=== PATIENT | male | born 1960 | race Caucasian/White ===

== ENCOUNTER 2024-06-15 12:44 | Outpatient (AMB) | payer OTHER, SELFPAY ==
--- NOTE | 2024-06-15 12:52 | MHC.PC.OV ---
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 Intake Note: Pt is here today as a New Patient to est care/ Pt is here c/o lump above belly button Allergies No Known Allergies Allergy (Verified 06/15/24 13:22) Medication List - Last Reconciled 06/15/24 by Shalonda Villegas MD aspirin (Adult Low Dose Aspirin) 81 mg PO DAILY atorvastatin mg PO DAILY diltiazem HCl CD mg PO DAILY Tobacco use date assessed: 06/15/24 Dental Screening Dental Screen Date: 06/15/24 Did you have a dental visit in the last 12 months?: No Did you have a dental problem in the last 6 months where you did not have access to dental care?: No Was dental information given to patient?: Patient has dentist 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 He is worried that it might be a hernia that might cause problems later if he does not get it checked. [facility] Medical History (Updated 06/15/24 @ 13:38 by Shalonda Villegas MD) Dyslipidemia Persistent atrial fibrillation Mass in the abdomen Surgical History (Updated 06/18/24 @ 01:11 by Shalonda Villegas MD) No pertinent past surgical history Social History Housing: House Patient Tobacco Use Status: Former Tobacco user e-Cigarette/Vaping Use: Never Used service: No Current occupational status: employed Cognitive needs: No Hearing needs: No Vision needs: Yes Questionnaire PHQ-9 Over the last 2 weeks, how often have you been bothered by any of the following problems? 1. Little interest or pleasure in doing things: not at all 2. Feeling down, depressed, or hopeless: not at all 3. Trouble falling or staying asleep, or sleeping too much: not at all 4. Feeling tired or having little energy: not at all 5. Poor appetite or overeating: not at all 6. Feeling bad about yourself - or that you are a failure or have let yourself or your family down: not at all 7. Trouble concentrating on things, such as reading the newspaper or watching television: not at all 8. Moving or speaking so slowly that other people could have noticed. Or the opposite - being so fidgety or restless that you have been moving around a lot more than usual: not at all 9. Thoughts that you would be better off or of hurting yourself in some way: not at all Total score: 0 Depression Screening Interpretation: Negative Depression Screening Done: Yes 00212 - PHQ-9 Billing: Yes Source: Developed by Drs. Evangelist Bhardwaj, Julieta Moody, Babak Marie and colleagues, with an educational janett from [employer]. Thrive Questionnaire Date Thrive assessed: 06/15/24 I am a: Patient What is your living situation today?: I have a steady place to live Within the past 12 months, did the food you bought not last and you didn't have the money to get more?: Never true Within the past 12 months, did you worry whether your food would run out before you got money to buy more?: Never true Do you have trouble paying for medicines?: No Do you have trouble getting transportation to medical appointments?: No Do you have trouble paying your heating and electricity bill?: No Do you have trouble taking care of your child, family member or friend?: No Do you have trouble with day-to-day activities such as bathing, preparing meals, shopping, managing finances, etc.?: No Are you currently unemployed and looking for a job?: No Are you interested in more education?: No Please select the resources that you would like help with: None Currently or been in a relationship where the following occur: No concerns reported THRIVE Score: 0 AUDIT C Alcohol Use Questionnaire (AUDIT-C) 1. How often do you have a drink containing alcohol?: 4 or more times a week 2. How many drinks containing alcohol do you have on a typical day when you are drinking?: 3 or 4 3. How often do you have six or more drinks on one occasion?: Less than monthly Total Score: 6 DONNA-7 AMB Questionnaire DONNA-7 Date DONNA - 7 assessed: 06/15/24 Feeling nervous, anxious, or on edge: 0 = Not at all Not being able to stop or control worryin = Not at all Worrying too much about different things: 0 = Not at all Trouble relaxin = Not at all Being so restless that it is hard to sit still: 0 = Not at all Becoming easily annoyed or irritable: 0 = Not at all Feeling afraid as if something awful might happen: 0 = Not at all Total DONNA-7 score (0-4 normal; 5-9 mild; 10-14 moderate; 15-21 severe): 0 Source: Developed by Drs. Evangelist Bhardwaj, Julieta Moody, Babak Marie and colleagues, with an educational janett from [employer]. Review of Systems Const Denies fatigue, Denies fever(s), Denies headache(s) and Denies weakness Eyes Denies change in vision ENT Denies dizziness, Denies headache(s) and Denies nasal congestion Card Denies chest pain, Denies lightheadedness and Denies dyspnea Resp Denies cough and Denies dyspnea GI Denies abdominal pain, Denies change in bowel habits and Denies heartburn Denies hematuria, Denies difficulty urinating, Denies dysuria, Denies urinary frequency and Denies urinary urgency Musc Reports as per HPI Neuro Denies dizziness, Denies headache(s) and Denies weakness Psych Reports no additional complaints Endo Denies fatigue, Denies polydipsia and Denies polyuria Jose/Lymph Denies easy bruising Aller/Immun Denies seasonal rhinorrhea Physical exam (Primary Care) Vital Signs: Last Vital Signs Temp 99.0 F 06/15/24 12:59 Pulse 97 06/15/24 12:59 Resp 16 06/15/24 12:59 BP 118/60 06/15/24 12:59 Pulse Ox 96 06/15/24 12:59 Oxygen Delivery Method Room Air 06/15/24 12:59 BMI result Body Mass Index 25.9 Tobacco/Smoking Status: Tobacco use Status Tobacco use date assessed 06/15/24 06/15/24 13:03 Patient Tobacco Use Status Former Tobacco user 06/15/24 13:03 e-Cigarette/Vaping Use Never Used 06/15/24 13:03 PHQ-9: PHQ-9 Score PHQ-9: Total score 0 06/15/24 22:39 Depression Screening Interpretation: Negative Thrive Assessment: Date of Thrive Assessment Date Thrive assessed 06/15/24 06/15/24 13:03 Currently or been in a relationship where the following occur: No concerns reported Const General: no acute distress and alert Nutritional Appearance: average body habitus Orientation/consciousness: patient oriented x3 HENMT Head: Yes normocephalic Ears: hearing grossly normal bilaterally and external ears normal Face and sinus: Yes face symmetric Mouth: Normal oral and palatal mucosa present, oropharynx normal and moist mucous membranes Neck Neck: Yes full ROM, Yes no lymphadenopathy and Yes supple Resp Auscultation: clear to auscultation bilaterally Cardio Palpation: normal PMI Rate: regular rate Rhythm: regular rhythm Heart sounds: S1 normal heart sound present and S2 normal heart sound present GI Other: Bulging mass nontender to palpation on supra umbilical area Skin General skin exam: no rashes or lesions noted Neuro General: patient oriented x3, gait normal, moves all extremities and no focal motor deficits Extrem General: Yes full ROM, Yes no joint enlargement, Yes no clubbing, cyanosis or edema and Yes normal gait Coding Level of Care Code New Pt Level 4 (56216) Complex EM visit Add On G2211 Diagnoses Periumbilical mass R19.05 Abdominal location: periumbilical Persistent atrial fibrillation I48.19 Dyslipidemia E78.5 Additional Codes PHQ-9 - 82903 - PHQ-9 Billing: Yes ([id number]) Assessment & Plan Assessment & Plan (1) Mass in the abdomen: Code(s): R19.00 - Intra-abdominal and pelvic swelling, mass and lump, unspecified site Category: Medical Qualifiers: Abdominal location: periumbilical Qualified Code(s): R19.05 - Periumbilic swelling, mass or lump Plan: Ultrasound of abdomen limited ordered, referred to general surgery for further evaluation management (2) Persistent atrial fibrillation: Comment: Followed by Dr. Camargo in [facility] cardiology currently only on aspirin 81 mg daily Code(s): I48.19 - Other persistent atrial fibrillation Category: Medical Plan: Currently on aspirin 81 mg daily and diltiazem , followed by [facility] cardiology (3) Dyslipidemia: Code(s): E78.5 - Hyperlipidemia, unspecified Category: Medical Plan: Fasting lipid panel ordered, reinforced importance of following a low-cholesterol diet and getting regular exercise. Orders: Orders Basic Metabolic Panel Fasting 06/15/24 E78.5 - Hyperlipidemia, unspecified, I48.19 - Other persistent atrial fibrillation, Z12.5 - Encounter for screening for malignant neoplasm of prostate Alanine Aminotransferase 06/15/24 E78.5 - Hyperlipidemia, unspecified, I48.19 - Other persistent atrial fibrillation, Z12.5 - Encounter for screening for malignant neoplasm of prostate PSA,Total (Free>4and<10) 06/15/24 E78.5 - Hyperlipidemia, unspecified, I48.19 - Other persistent atrial fibrillation, Z12.5 - Encounter for screening for malignant neoplasm of prostate US abdomen limited 06/15/24 R19.00 - Intra-abdominal and pelvic swelling, mass and lump, unspecified site Lipid Panel 06/15/24 E78.5 - Hyperlipidemia, unspecified, I48.19 - Other persistent atrial fibrillation, Z12.5 - Encounter for screening for malignant neoplasm of prostate Complete Blood Count Auto Diff 06/15/24 E78.5 - Hyperlipidemia, unspecified, I48.19 - Other persistent atrial fibrillation, Z12.5 - Encounter for screening for malignant neoplasm of prostate Aspartate Amino Transferase 06/15/24 E78.5 - Hyperlipidemia, unspecified, I48.19 - Other persistent atrial fibrillation, Z12.5 - Encounter for screening for malignant neoplasm of prostate Vitamin D 25-OH Total 06/15/24 E78.5 - Hyperlipidemia, unspecified, I48.19 - Other persistent atrial fibrillation, Z12.5 - Encounter for screening for malignant neoplasm of prostate Referrals General Surgery Referral R19.00 - Intra-abdominal and pelvic swelling, mass and lump, unspecified site
[2024-06-15 12:59] VITALS: BP 118/60; PULSE 97; RESP 16; TEMP 37.2; O2SAT 96; BMI 25.9
--- OUTSIDE RECORDS SUMMARY | 2024-06-15 15:21 | XMS_ITS | Clinical Summary ---
Author Organization [facility] Address [address] [place] [address] Care Team Providers Care Feather Shaper Name Role Phone Unavailable Primary Care Provider Unavailabl e Social History Tobacco Use Types Packs/Day Years Used Date Smoking Tobacco: Never Assessed Sex and Gender Information Value Date Recorded Sex Assigned at Male 10/20/2021 7:50 AM EDT Gender Identity Male 10/20/2021 7:50 AM EDT Sexual Orientation Not on file Job Start Date Occupation Industry Not on file Not on file Not on file Plan of Treatment Health Maintenance Due Date Last Done Comments Hepatitis C Screening 1960 COVID-19 Vaccine (#1) 02/25/1960 Depression Screening 1971 Preventative Health Evaluation 08/24/1977 DTap / Tdap / Td (1 - Tdap) 08/24/1978 Colon Cancer Screening (Colonoscopy) 08/24/2004 Shingrix-Zoster Vaccine (1 of 2) 08/24/2009 Influenza Vaccine (#1) 2023 Pneumococcal Vaccine (1 of 1 - PCV) 08/24/2024 RSV Adult > 60+ Yrs or Pregn ant (1 - 1-dose 75+ series) 08/24/2034 Hepatitis B Vaccines Aged Out No long er eligible based on patient's age to complete this topic Pneumococcal Vaccine Aged Out No long er eligible based on patient's age to complete this topic RSV Ped < 20 months Aged Out No longe r eligible based on patient's age to complete this topic Pop [place] Personal/Family Self 1960 [address] [place] [address]
== END 2024-06-15 13:43 | disposition home or self-care (01) ==
PROVIDERS: PCP Family Medicine; Visit Provider Internal Medicine
DX: R19.05 Periumbilic swelling, mass or lump (principal); I48.19 Other persistent atrial fibrillation; E78.5 Hyperlipidemia, unspecified

== ENCOUNTER → 2024-06-15 12:44 | Outpatient (BNVA) | payer OTHER, SELFPAY | PROVIDERS: PCP Family Medicine; Visit Provider Internal Medicine | DX: R19.05 Periumbilic swelling, mass or lump (principal); I48.19 Other persistent atrial fibrillation; E78.5 Hyperlipidemia, unspecified; Z79.82 Long term (current) use of aspirin; Z79.899 Other long term (current) drug therapy | CPT/HCPCS: 96127 ==

== ENCOUNTER 2024-06-28 10:12 | Outpatient (REF) | payer OTHER, SELFPAY ==
--- NOTE | ~2024-06-28 | US_ITS ---
CLINICAL HISTORY: R19.00 - Intra-abdominal and pelvic swelling, mass and lump, unspecified... US abdomen limited Comparison: None Findings: Focused sonographic imaging of the periumbilical area demonstrates a fat containing hernia with aperture measuring 1.4 cm. IMPRESSION: Findings are consistent with fat containing periumbilical hernia at the region of palpable abnormality with aperture measuring 14 mm. This document has been electronically signed by: Galina Chamorro MD on 06/29/2024 09:38:41
--- OUTSIDE RECORDS SUMMARY | 2024-06-28 11:53 | XMS_ITS | Clinical Summary ---
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
== END 2024-06-28 10:13 | disposition home or self-care (01) ==
LOC: HO.HMGCX 10:12
PROVIDERS: PCP Internal Medicine; Visit Provider Internal Medicine
DX: R19.00 Intra-abdominal and pelvic swelling, mass and lump, unspecified site (principal)
CPT/HCPCS: 76705

== ENCOUNTER → 2024-06-28 10:39 | Outpatient (BNV) | payer OTHER, SELFPAY | PROVIDERS: PCP Internal Medicine; Visit Provider Radiology Diagnostic Radiology | DX: R19.00 Intra-abdominal and pelvic swelling, mass and lump, unspecified site (principal) | CPT/HCPCS: 76705 ==

== ENCOUNTER 2024-07-06 08:38 | Outpatient (AMB) | payer OTHER, SELFPAY ==
--- NOTE | 2024-07-06 08:46 | A.OFFVIS_ITS ---
Vital Signs 3 07/06/24 08:54 Height 5 ft 11 in Weight 186 lb BMI 25.9 BP 120/68 Blood Pressure Location Lt brachial Position Sitting Intake Visit Reasons: Intra-abdominal and pelvic swelling, mass and lump Intake Note: Pt states, I guess I have a hernia. 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 He first noticed symptoms a few months ago after experiencing a twinge sensation at work during heavy lifting. This incident coincided with him feeling something pop but was not immediately painful. An ultrasound confirmed the presence of a small hernia with fatty tissue protrusion, measuring approximately 1.5 centimeters. The patient has had no prior abdominal surgeries and reports occasional mild pain, unsure if this is age-related. There are no associated gastrointestinal symptoms such as nausea, vomiting, or bowel issues. Furthermore, a diastasis recti was noted, characterized by rectus muscle separation, but it presents no immediate health concerns. [facility] Medical History (Updated 07/06/24 @ 09:56 by Grabiel Duncan MD) Dyslipidemia Persistent atrial fibrillation Mass in the abdomen Surgical History (Updated 07/06/24 @ 09:01 by Leoncio Sarmiento RN) History of open treatment of fracture of patella No pertinent past surgical history Social History Housing: House Patient Tobacco Use Status: Former Tobacco user e-Cigarette/Vaping Use: Never Used service: No Current occupational status: employed Cognitive needs: No Hearing needs: No Vision needs: Yes Review of Systems Const Details: - Gastrointestinal: Denies nausea, vomiting, bowel issues. - Musculoskeletal: Reports mild, occasional pain not attributed to specific cause. All systems reviewed & are unremarkable except as noted in HPI and below Physical Exam Vital Signs: Last Vital Signs BP 120/68 07/06/24 08:54 BMI result Body Mass Index 25.9 Const General: cooperative and no acute distress Nutritional Appearance: well nourished Orientation/consciousness: patient oriented x3 Limitations: no limitations HEENT Head: Yes normocephalic and Yes atraumatic Ears: hearing grossly normal bilaterally Resp Effort & Inspection: normal respiratory effort, no audible wheezes, no cough and no respiratory distress Cardio Jugular venous distension: no JVD GI Other: Abdominal- Palpation reveals hernia protrusion retracts upon laying down. Exam confirms diastasis recti with no discomfort on pressure application. Inspection: Yes normal to inspection Abdomen image: 2 1. 2 cm defect, reducible in the supine position. Skin Other: Warm, dry, no rash Neuro General: patient oriented x3 Extrem General: Yes no clubbing, cyanosis or edema Assessment & Plan Assessment & Plan (1) Ventral hernia: Code(s): K43.9 - Ventral hernia without obstruction or gangrene Category: Medical Qualifiers: Obstruction and gangrene presence: without obstruction or gangrene Q ualified Code(s): K43.9 - Ventral hernia without obstruction or gangrene Plan The plan for this patient's reducible hernia includes surgical repair post- mcfp for optimal recovery. The procedure entails defect closure and reinforcement with mesh to prevent long-term complications. Post-surgery activity limitations include no heavy lifting for a month. Same-day discharge and follow-up will be arranged to ensure satisfactory recovery. Discussion involved delineating the benefits, such as reduced recurrence risk, and potential complications, like infection, to the patient, who agreed to proceed with the planned intervention after mcfp. I reviewed the procedure, risks, and alternatives to repair of the ventral hernia with mesh and he consents to the surgery. This will be scheduled as a same-day surgery. Patient was informed and verbally consented to the use of an ambient scribe for clinic note documentation du Coding Level of Care Code New Pt Level 4 (52225) Diagnoses Ventral hernia without obstruction or gangrene K43.9 Obstruction and gangrene presence: without obstruction or gangrene
[2024-07-06 08:54] VITALS: BP 120/68; BMI 25.9
== END 2024-07-06 09:12 | disposition home or self-care (01) ==
LOC: HO.HGS 08:39
PROVIDERS: PCP Internal Medicine; Visit Provider Surgery
DX: K43.9 Ventral hernia without obstruction or gangrene (principal)
CPT/HCPCS: 99204

== ENCOUNTER 2024-07-26 07:43 | Outpatient (REF) | payer OTHER, SELFPAY ==
[2024-07-26 10:09] LABS: MANUAL DIFF FLAG NO
[2024-07-26 10:21] LABS: Basophils Percent Auto 0.4 % (0-2); Eosinophils Absolute Auto 0.1 X10*3/uL (0.0-0.4); Eosinophils Percent Auto 1.9 % (0-4); Hematocrit 43.6 % (42.0-52.0); Imm Gran Abs Auto 0.01 X10*3/uL (0.00-0.03); Imm Gran Pct Auto 0.2 % (0.0-0.4); Lymphocytes Absolute Auto 1.2 X10*3/uL (1.2-4.9); Lymphocytes Percent Auto 25.5 % (20-40); Mean Corpuscular HGB Conc 34.4 g/dl (31.0-36.0); Mean Corpuscular Hemoglobin 31.3 pg (27.0-33.0); Monocytes Absolute Auto 0.6 X10*3/uL (0.1-1.2); Monocytes Percent Auto 13.1 % (2-11); Neutrophils Absolute Auto 2.8 x10*3/uL (2.0-8.3); Neutrophils Percent Auto 58.9 % (45-73); Platelet Count 297 X10*3/uL (160-400); Red Blood Count 4.79 X10*6/uL (4.60-5.80); Red Cell Distribution Width 11.9 % (11.0-16.0); White Blood Count 4.8 X10*3/uL (4.8-10.8)
[2024-07-26 11:05] LABS: PSA,Total (Free>4and<10) 1.35 ng/mL (0.00-4.00)
[2024-07-26 11:16] LABS: Alanine Aminotransferase 23 U/L (0-40); Anion Gap 9 (12-20); Aspartate Amino Transferase 31 U/L (5-37); Blood Urea Nitrogen 13 mg/dL (9-16); Calcium 9.1 mg/dL (8.4-10.2); Carbon Dioxide 27 mmol/L (22-29); Chloride 109 mmol/L (96-108); Cholesterol 139 mg/dL (<200); Estimated Glomerular Filt Rate > 60; Glucose Fasting 95 mg/dL (60-99); HDL Cholesterol 59 mg/dL (>40); LDL Cholesterol Calculated 68 mg/dL (<100); Potassium 4.2 mmol/L (3.3-5.1); Sodium 141 mmol/L (135-145); Triglycerides 62 mg/dL (<150)
== END 2024-07-26 07:44 | disposition home or self-care (01) ==
LOC: HO.HMGCLDS 07:43
PROVIDERS: PCP Internal Medicine; Visit Provider Internal Medicine
DX: I48.19 Other persistent atrial fibrillation (principal); E78.5 Hyperlipidemia, unspecified; Z12.5 Encounter for screening for malignant neoplasm of prostate
CPT/HCPCS: 36415; 80048; 80061; 82306; 84153; 84450; 84460; 85025

== ENCOUNTER 2024-11-16 09:12 | Outpatient (AMB) | payer OTHER, SELFPAY ==
--- NOTE | 2024-11-16 09:15 | MHC.PC.OV ---
Vital Signs 11/16/24 09:18 Height 5 ft 11 in Weight 193 lb BMI 26.9 BP 118/64 Blood Pressure Location Rt brachial Position Sitting Respiration 14 Pulse 92 Pulse Source Pulse Oximeter Temp 98.4 F Temp Source Oral Pulse Oximetry (%) 98 Oxygen Delivery Method Room Air Intake Visit Reasons: Annual PE Intake Note: Pt is here today for his PE: last colonoscopy 10yrs ago at [facility] [place] Allergies No Known Allergies Allergy (Verified 11/16/24 10:11) Medication List - Last Reconciled 11/16/24 by Shalonda Villegas MD aspirin (Adult Low Dose Aspirin) 81 mg PO DAILY atorvastatin mg PO DAILY diltiazem HCl CD mg PO DAILY Tobacco use date assessed: 11/16/24 Fall risk assessment: 1 Fall in past year Last assessed Fall Risk: 11/16/24 Dental Screening Dental Screen Date: 11/16/24 Did you have a dental visit in the last 12 months?: Yes Did you have a dental problem in the last 6 months where you did not have access to dental care?: Yes Was dental information given to patient?: Patient has dentist HPI Annual PE HPI Details 64-year-old male with history of persistent atrial fibrillation with [id number] 1 currently being followed at [facility] cardiology, has history of hypertension, hypercholesterolemia, and vitamin-D deficiency, here today for his physical exam patient without any cardiac complaints at present time, 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 Currently taking aspirin 81 mg daily and atorvastatin 20 mg once a day as well as diltiazem 360 mg per capsule 1 daily. His last colonoscopy was 02/14/2015 at [facility], due for repeat colon cancer screening. Complains of pain on lateral aspect of right hip which has been present now for the last year and progressively getting worse. Pain is worse on prolonged walking and standing and on climbing stairs. Has been taking Advil which affords only temporary relief He recently retired and has a hard time adjusting to having lot of free time. 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 He is scheduled for repair of a ventral hernia on 01/10/[address] [facility] [place] [facility] Medical History (Updated 11/16/24 @ 17:42 by Shalonda Villegas MD) Chronic right hip pain Vitamin D deficiency Dyslipidemia Persistent atrial fibrillation Surgical History (Updated 11/16/24 @ 10:29 by Shalonda Villegas MD) History of amputation of finger History of ankle surgery Hx of colonoscopy History of open treatment of fracture of patella Family History (Updated 11/16/24 @ 10:30 by Shalonda Villegas MD) Father A-fib Colon cancer Mother A-fib Sister A-fib Paternal Grandfather Diabetes mellitus Myocardial infarction Social History Housing: House Patient Tobacco Use Status: Former Tobacco user e-Cigarette/Vaping Use: Never Used service: No Current occupational status: retired Cognitive needs: No Hearing needs: No Vision needs: Yes Questionnaire PHQ-9 Over the last 2 weeks, how often have you been bothered by any of the following problems? Depression Screening Interpretation: Negative Depression Screening Done: Yes Source: Developed by Drs. Evangelist Bhardwaj, Julieta Moody, Babak Marie and colleagues, with an educational janett from [employer]. Thrive Questionnaire Date Thrive assessed: 06/15/24 I am a: Patient What is your living situation today?: I have a steady place to live Within the past 12 months, did the food you bought not last and you didn't have the money to get more?: Never true Within the past 12 months, did you worry whether your food would run out before you got money to buy more?: Never true Do you have trouble paying for medicines?: No Do you have trouble getting transportation to medical appointments?: No Do you have trouble paying your heating and electricity bill?: No Do you have trouble taking care of your child, family member or friend?: No Do you have trouble with day-to-day activities such as bathing, preparing meals, shopping, managing finances, etc.?: No Are you currently unemployed and looking for a job?: No Are you interested in more education?: No Please select the resources that you would like help with: None Currently or been in a relationship where the following occur: No concerns reported THRIVE Score: 0 DONNA-7 AMB Questionnaire DONNA-7 Date DONNA - 7 assessed: 06/15/24 Source: Developed by Drs. Evangelist Bhardwaj, Julieta Babak White and colleagues, with an educational janett from [employer]. Review of Systems Const Denies fatigue, Denies fever(s), Denies headache(s), Denies weakness and Reports weight gain Eyes Details: [facility] yearly Denies change in vision ENT Denies dizziness, Denies headache(s) and Denies nasal congestion Card Denies chest pain, Denies lightheadedness and Denies dyspnea Resp Denies cough and Denies dyspnea GI Denies abdominal pain, Denies change in bowel habits and Denies heartburn Denies hematuria, Denies difficulty urinating, Denies dysuria, Denies urinary frequency and Denies urinary urgency Musc Reports as per HPI Skin/Breast Denies new lesions and Denies rash Neuro Denies dizziness, Denies headache(s) and Denies weakness Psych Reports no additional complaints Endo Denies fatigue, Denies polydipsia and Denies polyuria Jose/Lymph Denies easy bruising Aller/Immun Denies seasonal rhinorrhea Physical exam (Primary Care) Vital Signs: Last Vital Signs Temp 98.4 F 11/16/24 09:18 Pulse 92 11/16/24 09:18 Resp 14 11/16/24 09:18 BP 118/64 11/16/24 09:18 Pulse Ox 98 11/16/24 09:18 Oxygen Delivery Method Room Air 11/16/24 09:18 BMI result Body Mass Index 26.9 Tobacco/Smoking Status: Tobacco use Status Tobacco use date assessed 11/16/24 11/16/24 09:16 Patient Tobacco Use Status Former Tobacco user 11/16/24 09:16 e-Cigarette/Vaping Use Never Used 11/16/24 09:16 Depression Screening Interpretation: Negative Thrive Assessment: Date of Thrive Assessment Date Thrive assessed 06/15/24 11/16/24 09:16 Currently or been in a relationship where the following occur: No concerns reported Advance Care Planning discussion: Completed/Scanned Date of discussion: 11/16/24 Who was present: Patient Forms completed: Health Care Proxy and MOLST Time spent: 16-45 minutes Actual minutes spent: 5 Const General: no acute distress and alert Nutritional Appearance: average body habitus Orientation/consciousness: patient oriented x3 HENMT Head: Yes normocephalic Ears: hearing grossly normal bilaterally and external ears normal Face and sinus: Yes face symmetric Mouth: Normal oral and palatal mucosa present, oropharynx normal and moist mucous membranes Eyes General: appearance normal, both eyes and all related structures Neck Neck: Yes full ROM, Yes no lymphadenopathy and Yes supple Chest Chest palpation & inspection: normal inspection of the chest Breast/axilla inspection: normal inspection of the breasts Resp Auscultation: clear to auscultation bilaterally Cardio Rate: regular rate Rhythm: abnormal rhythm irregularly irregular GI Other: Bulging mass nontender to palpation on supra umbilical area General: Yes no CVA tenderness Male General Exam: Yes normal external exam Back/Spine/Pelvis Back: no CVA tenderness Skin General skin exam: no rashes or lesions noted Neuro General: patient oriented x3, gait normal, moves all extremities and no focal motor deficits Extrem General: Yes full ROM, Yes no joint enlargement, Yes no clubbing, cyanosis or edema and Yes normal gait Psych Appearance: grossly normal and well kempt Mental Status: mental status grossly normal Speech and movement: Normal speech and movement present Affect: normal affect Immunizations pneumoc 20-flaco conj-dip cr(PF) 0.5 mL IM syringe Performing Provider: Shalonda Villegas MD Performing Location: [facility] Administered by: Concepcion Nguyen CMA on 11/16/24 10:27 Dose Route Admin Location Dispensed Lot Number Expiration Date [facility] [place] [employer] Professor 0.5 mL IM Right Deltoid 0.5 mL [id number] 11/09/25 [employer] Total Dispensed Waste 0.5 mL 0 % VIS Given Date VIS Provided VIS Publication Date 11/16/24 Single Vaccine 24 Eligibility Eligibility Date Funding Source Not [facility] Eligible 11/16/24 Private Results Reviewed Results Reviewed: Name: Pop Monterroso Age/Sex: 63/M : 1960 Unit#: [id number] Attend Dr: Shalonda Villegas MD Re07/26/24 Status: DEP REF Location: [facility] Disch: SPEC : [id number] JOSE MIGUEL: 07/26/24 STATUS: COMP REQ : [id number] RECD: 07/26/[address]: Shalonda Villegas MD COMP: 07/26/24 ENTERED: 07/26/[address] [facility] [address]: ORDERED: CBC Auto Diff Test Result Flag Reference WBC 4.8 4.8-10.8 X10*3/uL RBC 4.79 4.60-5.80 X10*6/uL HGB 15.0 14.0-18.0 g/dl HCT 43.6 42.0-52.0 % MCV 91.0 80.0-98.0 fL MCH 31.3 27.0-33.0 pg MCHC 34.4 31.0-36.0 g/dl RDW 11.9 11.0-16.0 % PLT 297 160-400 X10*3/uL MPV 9.0 L 9.4-12.4 fL Neut Pct Auto 58.9 45-73 % ImGran Pct Auto 0.2 0.0-0.4 % Lymp Pct Auto 25.5 20-40 % [place] Pct Auto 13.1 H 2-11 % Eos Pct Auto 1.9 0-4 % Baso Pct Auto 0.4 0-2 % NRBC Pct Auto 0.0 0.0-0.2 /100WBC ANC Neut Abs # 2.8 2.0-8.3 x10*3/uL ImGran Abs Auto 0.01 0.00-0.03 X10*3/uL Lymph Abs Auto 1.2 1.2-4.9 X10*3/uL [place] Abs Auto 0.6 0.1-1.2 X10*3/uL Eos Abs Auto 0.1 0.0-0.4 X10*3/uL Baso Abs Auto 0.0 0.0-0.2 X10*3/uL NRBC Abs Auto 0.000 0.0-0.012 X10*3/uL Name: Pop Monterroso Age/Sex: 63/M : 1960 Unit#: [id number] Attend Dr: Shalonda Villegas MD Re07/26/24 Status: DEP REF Location: [facility] Disch: SPEC : [id number] JOSE MIGUEL: 07/26/24 STATUS: COMP REQ : [id number] RECD: 07/26/[address]: Shalonda Villegas MD COMP: 07/26/24-1116 ENTERED: 07/26/24-0753 DR: ORDERED: Met Prof Fast, AST, ALT, Lipid Panel, Vitamin D 25-OH Test Result Flag Reference Sodium 141 135-145 mmol/L Potassium 4.2 3.3-5.1 mmol/L CL 109 H 96-108 mmol/L CO2 27 22-29 mmol/L Gap 9 L 12-20 BUN 13 9-16 mg/dL Creat 0.83 0.5-1.4 mg/dL eGFR > 60 Chronic Kidney Disease: Estimated GFR < 60 mL/min/1.73m2 Severe Kidney Disease: Estimated GFR < 15 mL/min/1.73m2 FBS 95 60-99 mg/dL CA 9.1 8.4-10.2 mg/dL AST (GOT) 31 5-37 U/L ALT (GPT) 23 0-40 U/L Triglyceride 62 <150 mg/dL Desirable Triglyceride: less than 150 mg/dL Borderline High Triglyceride 150-199 mg/dL High Triglyceride: 200-499 mg/dL Very High Triglyceride: greater than or equal to 5OO mg/dL Cholesterol 139 <200 mg/dL Desirable Cholesterol: less than 200 mg/dL Borderline High Cholesterol: 200-239 mg/dL High Cholesterol: greater than 239 mg/dL LDL Calculated 68 <100 mg/dL Desirable LDL: less than 100 mg/dL Near Optimal/Above Optimal LDL: 110-129 mg/dL Borderline High LDL: 130-159 mg/dL High LDL: 160-189 mg/dL Very High LDL: greater than or equal to 190 mg/dL HDL 59 >40 mg/dL Desirable HDL: greater than 40 mg/dL Note: This HDL assay may give artificially low results in patients with liver disease. Vitamin D 25-OH 18.0 L >30 ng/mL Health Based Reference Values* < 20 ng/mL Deficient 20-30 ng/mL Insufficient > 30 ng/mL Sufficient Coding Level of Care Code Est Pt Prev Care >65y(99795) Diagnoses Annual visit for general adult medical examination with abnormal findings Z00.01 Persistent atrial fibrillation I48.19 Dyslipidemia E78.5 Chronic right hip pain M25.551; G89.29 Encounter for screening for malignant neoplasm of colon Z12.11 Ventral hernia without obstruction or gangrene K43.9 Obstruction and gangrene presence: without obstruction or gangrene Vitamin D deficiency E55.9 Advance directive discussed with patient Z71.89 Additional Codes Vital Signs *Quality* - Advance Care Planning discussion: Completed/Scanned ([id number]) Vital Signs *Quality* - Time spent: 16-45 minutes ([id number]) Assessment & Plan Assessment & Plan (1) Annual visit for general adult medical examination with abnormal findings: Code(s): Z00.01 - Encounter for general adult medical examination with abnormal findings Plan: Will check appropriate labs. Recommended dental visit every 6 months and regular eye exams, at least every 2 years. Take adequate calcium in diet and vitamin-D 3 at 2000 IU per cap once a day, in addition to weight-bearing exercises to help maintain good muscle tone and weight control. Instructed to do self-testicular exam check for any mass. Referred to [facility] Clinic for his colon cancer screening. Prevnar 20 given today. Reminded to get yearly flu shot up-to-date with Td (2) Persistent atrial fibrillation: Comment: [id number] 1Followed by Dr. Camargo in [facility] cardiology currently only on aspirin 81 mg daily Code(s): I48.19 - Other persistent atrial fibrillation Category: Medical Plan: On aspirin 81 mg daily and diltiazem CD for rate control, currently followed at [facility] cardiology by Dr. Camargo (3) Dyslipidemia: Code(s): E78.5 - Hyperlipidemia, unspecified Category: Medical Plan: Fasting lipid panel ordered today. Reinforced importance of following a low-cholesterol diet and getting regular exercise. Currently on atorvastatin 20 mg daily (4) Chronic right hip pain: Code(s): M25.551 - Pain in right hip; G89.29 - Other chronic pain Category: Medical Plan: X-ray of right hip ordered, referred to orthopedics for further evaluation, patient wanting to only see Dr. Ramirez (5) Encounter for screening for malignant neoplasm of colon: Code(s): Z12.11 - Encounter for screening for malignant neoplasm of colon Plan: Referred to GI Clinic for his colon cancer screening (6) Ventral hernia: Code(s): K43.9 - Ventral hernia without obstruction or gangrene Category: Medical Qualifiers: Obstruction and gangrene presence: without obstruction or gangrene Qualified Code(s): K43.9 - Ventral hernia without obstruction or gangrene Plan: Scheduled for ventral hernia repair on 01/10/2025 (7) Vitamin D deficiency: Code(s): E55.9 - Vitamin D deficiency, unspecified Category: Medical Plan: Ordered a vitamin-D level to be checked (8) Advance directive discussed with patient: Code(s): Z71.89 - Other specified counseling Plan: Initiated the conversation about Advanced Directives. Advanced Directives help patients prepare for current and future decisions about their medical treatment and place of care. Discussed with patient that it is a process where a patients current condition and prognosis are reviewed, their wishes for information regarding their illness are elicited, and likely medical dilemmas are presented and options discussed. Healthcare proxy form completed today. The form can be amended as needed, reviewed yearly and make changes as needed Orders: Orders Aspartate Amino Transferase Today E55.9 - Vitamin D deficiency, unspecified, E78.5 - Hyperlipidemia, unspecified, I48.19 - Other persistent atrial fibrillation, Z12.5 - Encounter for screening for malignant neoplasm of prostate XR hip RT min 2V Today G89.29 - Other chronic pain, M25.551 - Pain in right hip Lipid Panel Today E55.9 - Vitamin D deficiency, unspecified, E78.5 - Hyperlipidemia, unspecified, I48.19 - Other persistent atrial fibrillation, Z12.5 - Encounter for screening for malignant neoplasm of prostate Vitamin D 25-OH Total Today E55.9 - Vitamin D deficiency, unspecified, E78.5 - Hyperlipidemia, unspecified, I48.19 - Other persistent atrial fibrillation, Z12.5 - Encounter for screening for malignant neoplasm of prostate Alanine Aminotransferase Today E55.9 - Vitamin D deficiency, unspecified, E78.5 - Hyperlipidemia, unspecified, I48.19 - Other persistent atrial fibrillation, Z12.5 - Encounter for screening for malignant neoplasm of prostate Basic Metabolic Panel Fasting Today E55.9 - Vitamin D deficiency, unspecified, E78.5 - Hyperlipidemia, unspecified, I48.19 - Other persistent atrial fibrillation, Z12.5 - Encounter for screening for malignant neoplasm of prostate Pneumococcal 20 Immunization Today Z23 - Encounter for immunization Referrals Orthopedics Referral G89.29 - Other chronic pain, M25.551 - Pain in right hip Gastroenterology Referral Z12.11 - Encounter for screening for malignant neoplasm of colon
[2024-11-16 09:18] VITALS: BP 118/64; PULSE 92; RESP 14; TEMP 36.9; O2SAT 98; BMI 26.9
--- OUTSIDE RECORDS SUMMARY | 2024-11-16 09:34 | XMS_ITS | Clinical Summary ---
Author Organization [facility] Address [address] [place] [address] Care Team Providers Care Tack Cleaner Name Role Phone Unavailable Primary Care Provider [...] 08/24/2004 Shingrix-Zoster Vaccine (1 of 2) 08/24/2009 Fall Risk Assessment 08/24/2024 Pneumococcal Vaccine (1 of 1 - PCV) 08/24/2024 Influenza Vaccine (#1) 2024 RSV Adult > 60+ Yrs or Pregn [...] this topic Pop Monterroso Personal/Family Self 1960 [address] [place] [address]
== END 2024-11-16 10:29 | disposition home or self-care (01) ==
LOC: HO.HMCC 09:13
PROVIDERS: PCP Internal Medicine; Visit Provider Internal Medicine
DX: Z00.01 Encounter for general adult medical examination with abnormal findings (principal); I48.19 Other persistent atrial fibrillation; E78.5 Hyperlipidemia, unspecified; M25.551 Pain in right hip; G89.29 Other chronic pain; Z12.11 Encounter for screening for malignant neoplasm of colon; K43.9 Ventral hernia without obstruction or gangrene; E55.9 Vitamin D deficiency, unspecified; Z71.89 Other specified counseling; Z23 Encounter for immunization; Z00.00 Encounter for general adult medical examination without abnormal findings

== ENCOUNTER → 2024-11-16 09:12 | Outpatient (BNVA) | payer MEDICARE, SELFPAY | PROVIDERS: PCP Internal Medicine; Visit Provider Internal Medicine | DX: Z00.01 Encounter for general adult medical examination with abnormal findings (principal); Z23 Encounter for immunization; I48.19 Other persistent atrial fibrillation; E78.5 Hyperlipidemia, unspecified; M25.551 Pain in right hip; G89.29 Other chronic pain | CPT/HCPCS: 90471; 90677 ==

== ENCOUNTER 2024-12-04 08:12 | Outpatient (REF) | payer MEDICARE, SELFPAY ==
--- NOTE | ~2024-12-04 | XR_ITS ---
EXAMINATION: XR HIP 2 OR MORE VIEWS RIGHT HISTORY: M25.551 - Pain in right hip COMPARISON: There are no prior studies available for comparison. FINDINGS: Two views of the right hip are submitted. Osseous mineralization is normal. There is no fracture or dislocation. There is severe osteoarthritis with joint space narrowing, osteophyte formation, and subchondral cyst formation. The soft tissues are unremarkable. XR/XR hip RT min 2V IMPRESSION: Severe osteoarthritis as described. Electronically signed by: Evangelist Bhatt MD 12/04/2024 09:20 AM EDT
[2024-12-04 10:55] LABS: Alanine Aminotransferase 28 U/L (0-40); Anion Gap 12 (12-20); Aspartate Amino Transferase 33 U/L (5-37); Blood Urea Nitrogen 10 mg/dL (9-16); Calcium 9.0 mg/dL (8.4-10.2); Carbon Dioxide 26 mmol/L (22-29); Chloride 106 mmol/L (96-108); Cholesterol 155 mg/dL (<200); Estimated Glomerular Filt Rate > 60; HDL Cholesterol 52 mg/dL (>40); Potassium 4.0 mmol/L (3.3-5.1); Sodium 140 mmol/L (135-145); Triglycerides 106 mg/dL (<150)
== END 2024-12-04 08:13 | disposition home or self-care (01) ==
LOC: HO.HMGCX 08:12
PROVIDERS: PCP Internal Medicine; Visit Provider Internal Medicine
DX: Z12.5 Encounter for screening for malignant neoplasm of prostate (principal); E78.5 Hyperlipidemia, unspecified; I48.19 Other persistent atrial fibrillation; E55.9 Vitamin D deficiency, unspecified; M25.551 Pain in right hip; G89.29 Other chronic pain
CPT/HCPCS: 36415; 73502; 80048; 80061; 82306; 84450; 84460

== ENCOUNTER → 2024-12-04 08:34 | Outpatient (BNV) | payer MEDICARE, SELFPAY | PROVIDERS: PCP Internal Medicine; Visit Provider Radiology Diagnostic Radiology | DX: M16.11 Unilateral primary osteoarthritis, right hip (principal) | CPT/HCPCS: 73502 ==

== ENCOUNTER → 2024-12-27 10:38 | Outpatient (BNV) | payer MEDICARE, SELFPAY | PROVIDERS: PCP Internal Medicine; Visit Provider Internal Medicine | DX: I48.91 Unspecified atrial fibrillation (principal) | CPT/HCPCS: 93010 ==

== ENCOUNTER → 2025-01-03 13:33 | Outpatient (REF) | payer MEDICARE, SELFPAY ==
--- NOTE | 2025-01-03 13:37 | CA_ITS ---
Transthoracic Echocardiogram Patient (Last, First, Middle): Pop Monterroso, Gender: Male Date of : 1960 Age: 64 Procedure Date: 01/03/2025 Procedure Type: Transthoracic Echocardiogram Location: OP Height: 180.34 cm Weight: 87.54 kg BSA: 2.08 m2 Heart Rate: 92 bpm BP: 118 / 64 mmHg Quality Assurance Monitor Final: LUCINDA Referring MD: Grabiel Duncan MD Symptoms: I48.19 - Other persistent atrial fibrillation Study Quality: Adequate ECG Rhythm: Atrial Fibrillation Conclusions: - 1. Low normal LV ejection fraction 50-55% 2. Mildly dilated left atrium 3. Normal cardiac valvular Dopplers next 4. No gross pericardial effusion Findings Left Ventricle Normal left ventricular cavity size. There is normal left ventricular wall thickness. The left ventricular systolic function is low normal. The visually estimated ejection fraction is between 50-55%. Diastolic function is indeterminate on the basis of available data. Right Ventricle Normal right ventricular cavity size and systolic function. Atria The left atrium is mildly dilated. There is no evidence of interatrial shunt. The right atrium is normal in size. Aortic Valve The aortic valve structure and function is likely normal. There is no aortic valve stenosis. There is no aortic valve regurgitation. Mitral Valve Normal mitral valve structure and function. There is trace mitral valve regurgitation. There is no mitral valve stenosis. Pulmonic Valve The pulmonic valve is likely normal. There is trace pulmonic valve regurgitation. Tricuspid Valve Normal tricuspid valve structure. Tricuspid regurgitation envelope is inadequate for calculation of right ventricular systolic pressure. Normal right atrial pressure. Great Vessels All visible segments of the aorta are normal in size. The pulmonary artery was not well visualized. There is no dilatation of the ascending aorta measuring 3.40 cm. Venous The inferior vena cava is normal in size and collapses greater than 50% with inspiration. Pericardium/Pleural There is no evidence of pericardial effusion. Prior Study Comparison No prior study available for comparison. Measurements 2D Linear Measurements IVSd: 0.89 0.6-0.9/0.6-1.0 cm LVIDd: 5.09 3.9-5.3/4.2-5.9 cm LVIDd Index: 2.45 2.4-3.2/2.2-3.1 cm/m2 LVIDs: 3.28 2.0-3.6 cm LVPWd: 1.01 0.7-1.1 cm LA Diam: 4.40 2.7-3.8/3.0-4.0 cm LAIDs Index: 2.12 1.5-2.3 cm/m2 LV Mass: 218.50 67-162/88-224 g LV Mass Index: 105.05 43-95/49-115 g/m2 LVOT Diam: 2.40 3.0+(-)1.3 cm 2D Systolic Function EF 4C: 50.20 >55% EF 2C: 57.20 >55% EF BiP: 54.30 >55% Mitral Valve MV Pk E: 0.88 E'Lateral: 9.53 E'Medial: 9.56 E/E' Med: 9.20 E/E' Lat: 9.30 Aortic Valve AoV Pk Jaron: 1.02 AoV Pk Grad: 4.00 SANTO: 3.69 LVOT LVOT Pk Jaron: 0.83 LVOT Mn Jaron: 0.58 LVOT VTI: 0.15 LVOT Pk Grad: 3.00 LVOT Mn Grad: 1.00 LVOT Diam: 2.40 LVOT Area: 4.52 Diastolic Function MV Pk E: 0.88 E'Medial: 9.56 E/E' Med: 9.20 E' Laterial: 9.53 E/E' Lat: 9.30 Right Ventricle TAPSE (mm): 15.80 Tricuspid Valve TR Pk Jaron: 2.25 TR Pk Grad: 20.00 Great Vessels Aorta Sinus of Valsalva: 3.90 2.0-3.5 cm Ao Asc: 3.40 2.1-3.4 cm Pulmonary Valve PV Pk Jaron: 0.65 Peak PV Grad: 2.00 Updated in Other Vendor System with Status of Final Tim Arnold MD electronically signed on 01/03/2025 4:33:09 PM with status of Final
--- OUTSIDE RECORDS SUMMARY | 2025-01-03 15:59 | XMS_ITS | Clinical Summary ---
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
== END ==
LOC: HO.CARD 13:33
PROVIDERS: PCP Internal Medicine; Visit Provider Surgery
DX: I48.19 Other persistent atrial fibrillation (principal)
CPT/HCPCS: 93306

== ENCOUNTER → 2025-01-03 13:37 | Outpatient (BNV) | payer MEDICARE, SELFPAY | PROVIDERS: PCP Internal Medicine; Visit Provider Internal Medicine Cardiovascular Disease | DX: I48.19 Other persistent atrial fibrillation (principal); I51.7 Cardiomegaly | CPT/HCPCS: 93306 ==

== ENCOUNTER 2025-01-10 05:40 | Day surgery (SDC) | payer MEDICARE, SELFPAY ==
--- OUTSIDE RECORDS SUMMARY | 2024-12-14 13:49 | XMS_ITS | Clinical Summary ---
Author Organization [facility] Address [address] [place] [address] Care Team Providers Care Press Officer Name Role Phone Unavailable Primary Care Provider [...] this topic Pop Monterroso Personal/Family Self 1960 [address] [place] [address]
--- NOTE | 2024-12-27 | ECG_ITS ---
Test Reason : PREOP Blood Pressure : */* mmHG Vent. Rate : 97 BPM Atrial Rate : * BPM P-R Int : * ms QRS Dur : 86 ms QT Int : 382 ms P-R-T Axes : * 73 14 degrees QTcB Int : 485 ms Atrial fibrillation with premature ventricular or aberrantly conducted complexes Nonspecific ST and T wave abnormality Prolonged QT Abnormal ECG No previous ECGs available Referred By: Nery Oconnell Electronically Signed By: TONA MORRISON
[2024-12-27 09:59] VITALS: BP 156/74; PULSE 103; RESP 16; O2SAT 98; BMI 27.5
--- NOTE | 2024-12-27 10:21 | HO.ANESPROP2 ---
Documented by User: Nery Oconnell NP 01/04/25 12:09 HPI - Anesthesia Eval Consult details Narrative: ECHO pending 01/03/25 at [facility] [place] 64yo M for Repair Hernia Ventral Reducible with mesh, 01/10/25 No recent illness No CP/SOB with limited activity d/t hip pain (pending surgical consult). Bartends a few hours weekly PAF - asa, diltiazem; dx'd >10 years ago. Follows [facility]. Stable at 10/2024 office visit for routine f/u in 1 year. No echo's with [facility] cardiology on record in the last 5 years [facility] Active Problems Active Problems: All Active Problems Ventral hernia (Acute) Chronic right hip pain (Acute) Vitamin D deficiency (Acute) Dyslipidemia (Acute) Persistent atrial fibrillation (Acute) Past Medical History Medical History Right hip pain Osteoarthritis Chronic right hip pain Vitamin D deficiency Dyslipidemia Persistent atrial fibrillation Family History Family History (Updated 11/16/24 @ 10:30 by Shalonda Villegas MD) Father A-fib Colon cancer Mother A-fib Sister A-fib Paternal Grandfather Diabetes mellitus Myocardial infarction Family history of problems with anesthesia: No Surgical History Surgical History History of amputation of finger History of ankle surgery (~1979) Hx of colonoscopy (~2014) History of Problems with Anesthesia: No Social History Social History (Updated 01/02/25 @ 09:00 by Lawanda Jaquez RN) Household Members: Spouse Housing: House Are you a primary child care giver to a significant other at home: No Do you presently have visiting nurse or other home services: No Patient Tobacco Use Status: Former Tobacco user Tobacco use type: Cigarette Smoked in Last 30 Days: No e-Cigarette/Vaping Use: Never Used Use of substances other than those prescribed or required for medical reasons: No Have you been hit, kicked, punched, or otherwise hurt by someone within the past year? If so, by whom?: No Are you DNR?: No Advance Directives: No Advance Directives Information Provided: Yes Advance Directives on File: No service: No Current occupational status: retired Cognitive needs: No Hearing needs: No Vision needs: Yes Meds Allergies Allergy/AdvReac Type Severity Reaction Status Date / Time No Known Allergies Allergy Verified 01/10/25 06:05 Home Medications ?Medication ?Instructions ?Recorded ?Confirmed ?Last Taken ?Type aspirin 81 mg tablet,delayed 81 mg PO DAILY 06/15/24 12/27/24 01/09/25 History release (Adult Low Dose Aspirin) atorvastatin 20 mg tablet 20 mg PO BEDTIME 06/15/24 12/27/24 Unknown History diltiazem HCl 360 mg 360 mg PO BEDTIME 06/15/24 12/27/24 Unknown History capsule,extended release 24 hr acetaminophen 500 mg tablet 1,000 mg PO Q6H PRN Pain 12/27/24 12/27/24 Unknown History (Acetaminophen Extra Strength) Exam Height,Weight and Vital Signs: Height 6 ft Weight 92.1 kg Last Vital Signs Pulse 103 H 12/27/24 09:59 Resp 16 12/27/24 09:59 BP 156/74 H 12/27/24 09:59 Pulse Ox 98 12/27/24 09:59 O2 Del Method Room Air 12/27/24 09:59 Pertinent Lab Results Pertinent Lab Results: Laboratory Tests 07/26/24 12/04/24 07:53 08:28 WBC 4.8 Hgb 15.0 Hct 43.6 Plt Count 297 Sodium 140 Potassium 4.0 Chloride 106 Carbon Dioxide 26 BUN 10 Creatinine 0.93 Narrative Narrative: EKG 12/2024 Vent. Rate : 97 BPM Atrial Rate : * BPM P-R Int : * ms QRS Dur : 86 ms QT Int : 382 ms P-R-T Axes : * 73 14 degrees QTcB Int : 485 ms Atrial fibrillation with premature ventricular or aberrantly conducted complexes Nonspecific ST and T wave abnormality Prolonged QT Abnormal ECG No previous ECGs available ECHO 12/2024 Conclusions: - 1. Low normal LV ejection fraction 50-55% 2. Mildly dilated left atrium 3. Normal cardiac valvular Dopplers next 4. No gross pericardial effusion Airway Mallampati Class: II TM Dist: >3cm Neck ROM: Full Partial: Upper Loose/Missing/Broken Teeth: Yes (No bottom teeth, upper right side molar broken) Heart: Tachy, irreg Lungs: CTAB Assessment and Plan Assessment Anesthesia Assessment: Anesthesia Plan Discussed and PAT Visit Final Anesthetic Review Family History of Problems with Anesthesia: No History of Problems with Anesthesia: No Documented by User: Evan Quinn MD 01/10/25 07:24 [facility] Past Medical History Medical History Right hip pain Osteoarthritis Chronic right hip pain Vitamin D deficiency Dyslipidemia Persistent atrial fibrillation Family History Family History (Updated 11/16/24 @ 10:30 by Shalonda Villegas MD) Father A-fib Colon cancer Mother A-fib Sister A-fib Paternal Grandfather Diabetes mellitus Myocardial infarction Surgical History Surgical History History of amputation of finger History of ankle surgery (~1979) Hx of colonoscopy (~2014) Social History Social History (Updated 01/02/25 @ 09:00 by Lawanda Jaquez RN) Household Members: Spouse Housing: House Are you a primary child care giver to a significant other at home: No Do you presently have visiting nurse or other home services: No Patient Tobacco Use Status: Former Tobacco user Tobacco use type: Cigarette Smoked in Last 30 Days: No e-Cigarette/Vaping Use: Never Used Use of substances other than those prescribed or required for medical reasons: No Have you been hit, kicked, punched, or otherwise hurt by someone within the past year? If so, by whom?: No Are you DNR?: No Advance Directives: No Advance Directives Information Provided: Yes Advance Directives on File: No service: No Current occupational status: retired Cognitive needs: No Hearing needs: No Vision needs: Yes Meds Allergies Allergy/AdvReac Type Severity Reaction Status Date / Time No Known Allergies Allergy Verified 01/10/25 06:05 Home Medications ?Medication ?Instructions ?Recorded ?Confirmed ?Last Taken ?Type aspirin 81 mg tablet,delayed 81 mg PO DAILY 06/15/24 12/27/24 01/09/25 History release (Adult Low Dose Aspirin) atorvastatin 20 mg tablet 20 mg PO BEDTIME 06/15/24 12/27/24 Unknown History diltiazem HCl 360 mg 360 mg PO BEDTIME 06/15/24 12/27/24 Unknown History capsule,extended release 24 hr acetaminophen 500 mg tablet 1,000 mg PO Q6H PRN Pain 12/27/24 12/27/24 Unknown History (Acetaminophen Extra Strength) Assessment and Plan Final Anesthetic Review NPO: Yes ASA Class: III Final Preanesthetic Review: No Changes in Pt Med Stat, Meds/Allgs Chart Reviewed, Consent Obtained/Reviewed and Anes Risks/Benef Reviewed Patient Risk: Intermediate Procedure Risk: Low Anesthetic Plan Anesthetic Plan: GA and Agree w/ Assess. and Plan Disposition: Standard PACU
[2025-01-10] VITALS (9 sets, daily range): BP systolic 97–143; BP diastolic 49–81; PULSE 65–94; RESP 12–17; TEMP 36.5–36.8; O2SAT 95–98
[2025-01-10] MEDS: Lactated Ringers 1,000 ML 100 ML IVCONT (06:18)
--- NOTE | 2025-01-10 07:21 | MHC.SHP ---
Pre-Procedural Eval Section A - 24 Hr Update-Section A only Date of Service: 01/10/25 The patient is an INPATIENT: No Changes since office visit: Yes Patient answered all questions; No Cold of Flu in the past 2 weeks, No New Medical Problems and No Changes in Medication The patient has been examined within 24 hours of the surgical procedure. The History & Physical has been completed within 30 days and I have reviewed it.: No Section B - Complete if H&P > 30 days Chief Complaint: Ventral hernia without obstruction or gangrene Details of Present Illness: Patient denies any significant symptoms from the hernia, and generally feels well Relevant Family History (Specify if Yes): No Relevant Social History: Tobacco Use (Former tobacco use) Present Medications: see Short Stay Collaborative assessment Medical History: No relevant PMH History of Previous Operations: No relevant previous surgery Allergies: Allergies Allergy/AdvReac Type Severity Reaction Status Date / Time No Known Allergies Allergy Verified 01/10/25 06:05 Review of Systems Sugical H&P ROS: Negative: Constitution, Cardiovascular, Respiratory, Neurological, Psychiatric, Hem-Onc, Allergic/Immunologic, Gastrointestinal, Genitourinary, Musculoskeletal and Integumentary Exam Surgical H&P Exam: Normal: HEENT, Normal: Heart, Normal: Lungs, Normal: Extremities and Normal: Skin and Significant Findings: Abdomen (Reducible ventral hernia just above the umbilicus) Plan Diagnosis/Plan: Unchanged I have reviewed the history and physical and performed a pertinent physical examination on my patient. No changes have occurred unless specified. I again reviewed the procedure, risks and alternatives in detail and he consents to repair of the ventral hernia with mesh. Time Spent With Patient Time: Total time managing care of this patient today ____ minutes.
--- NOTE | 2025-01-10 08:34 | W.PM.OPN ---
Operative Note Operative Note Date of Service: 01/10/25 Narrative: Preoperative diagnosis:Ventral hernia, reducible, 3 cm Postoperative diagnosis: same Procedure: repair of reducible ventral hernia with mesh Surgeon: Grabiel Duncan MD Supervisor Home Economics: Estela Lawson PA-C; CONNIE Gómez Anesthesia: general LMA Indications for procedure: 64-year-old male patient presenting with a palpable lump located above the umbilicus which increases in size with Valsalva maneuvers measuring approximately 3 cm in diameter. Operative findings: Reducible ventral hernia at the umbilicus containing preperitoneal and omental fat. A 2nd hernia was noted at the umbilicus which was included in the repair. Specimen: Hernia sac Estimated blood loss: 2 mL Complications: none Procedure details: patient was brought to the OR and placed in a supine position. After administering general anesthesia the patient's abdomen was prepped with ChloraPrep and draped in a sterile fashion. A surgical time-out was called the consent confirmed. Patient received preoperative antibiotics and Venodyne boots were in place. Local anesthesia consisting of 0.5% Sensorcaine was infiltrated directly over the hernia in the midline. An incision was then made in the midline which extended below the umbilicus. This was carried out through subcutaneous tissue and up to the hernia sac. The hernia sac was then dissected circumferentially down to the fascial defect. The sac was then entered and the contents reduced into the abdominal cavity. The redundant hernia sac was then excised and sent to pathology for further examination. Peritoneum was then closed using a running 0 Polysorb suture. The umbilical skin was then lifted off the fascia and an umbilical hernia identified in this location. The contents were reduced into the abdominal cavity. This opening was then incorporated into the 1st more superior hernia. Total defect measured approximately 3 cm in diameter. A preperitoneal space was then created using electrocautery. A 6.4 cm round Ventralex mesh was then obtained. This was deployed within the preperitoneal space and secured in 4 quadrants using a 1 Tycron suture. Wounds were irrigated with saline solution and suctioned dry. Fascia was closed over the mesh using [id number] 1 Tycron sutures. Before completely closing the fascia approximately 4 mL of Zenrelef was instilled below the fascia. The remaining fascia was closed again using the [id number] 1 Tycron sutures. Wounds were again irrigated with saline solution and suctioned dry. Umbilical skin was reattached to the fascia using a 3-0 Polysorb suture. Dermis was reapproximated using interrupted 3-0 Polysorb sutures. Skin was closed using a running subcuticular 4-0 Polysorb suture. Sterile dressings consisting of Steri-Strips, 4 x 4 gauze and Tegaderm were then applied. The patient tolerated the procedure well. Sponge, instrument, needle counts reported as correct. The patient was transferred to PACU in stable condition.
[2025-01-10] MEDS: oxyCODONE HCl Immed Release 5 MG TABLET PO (09:12)
== END 2025-01-10 09:51 | disposition home or self-care (01) ==
PROVIDERS: PCP Internal Medicine; Visit Provider Surgery
PROC: (CPT 49593; principal; 2025-01-10 07:30)
DX: K43.9 Ventral hernia without obstruction or gangrene (principal)
CPT/HCPCS: 49593; 88302; 93005; C1781; C9088; J0665; J0690; J2003; J2704; J3010

== ENCOUNTER → 2025-01-10 05:40 | Outpatient (BNV) | payer MEDICARE, SELFPAY | PROVIDERS: PCP Internal Medicine; Visit Provider Surgery | DX: K43.9 Ventral hernia without obstruction or gangrene (principal) | CPT/HCPCS: 49593 ==

== ENCOUNTER 2025-01-24 14:04 | Outpatient (AMB) | payer MEDICARE, SELFPAY ==
--- NOTE | 2025-01-24 14:07 | MHC.OFFVIS ---
Vital Signs 01/24/25 14:14 Weight 204 lb BP 149/77 H Blood Pressure Location Rt brachial Position Sitting Pulse 100 Intake Visit Reasons: S/P ventral hernia w/mesh Intake Note: Patient here s/p repair of reducible ventral hernia with mesh. Patient c/o: soreness at incision site. No longer taking rx pain meds. 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 His only concern is there is a lump at the incision site that he states looks like the hernia. Denies pain, drainage, fevers changes to the skin. he is comfortable ambulating around the house. Denies heavy lifting, has been keeping lifting under 10 pounds. Denies issues with appetite, bowel movements are at baseline. [facility] Medical History Right hip pain Osteoarthritis Chronic right hip pain Vitamin D deficiency Dyslipidemia Persistent atrial fibrillation Surgical History (Updated 01/24/25 @ 14:43 by Zak Kern PA-C) History of ventral hernia repair (01/10/25) History of amputation of finger History of ankle surgery (~1979) Hx of colonoscopy (~2014) Family History (Updated 11/16/24 @ 10:30 by Shalonda Villegas MD) Father A-fib Colon cancer Mother A-fib Sister A-fib Paternal Grandfather Diabetes mellitus Myocardial infarction Social History (Updated 01/02/25 @ 09:00 by Lawanda Jaquez RN) Household Members: Spouse Housing: House Are you a primary director of health care marketing to a significant other at home: No Do you presently have visiting nurse or other home services: No Comment: counts correct Patient Tobacco Use Status: Former Tobacco user Tobacco use type: Cigarette e-Cigarette/Vaping Use: Never Used service: No Current occupational status: retired Cognitive needs: No Hearing needs: No Vision needs: Yes Review of Systems Const All systems reviewed & are unremarkable except as noted in HPI and below Physical Exam Vital Signs: Last Vital Signs Pulse 100 01/24/25 14:14 BP 149/77 H 01/24/25 14:14 Const General: comfortable and no acute distress Resp Effort & Inspection: normal respiratory effort and able to speak in complete sentences GI Other: supraumbilical incision site: clean dry and intact. there is a 3 finger breaths area of induration and protrusion. there is a small 1.5 area of fluctuance at the superior aspect of the incision site liley representing a seroma. There is no overlaying skin changes such as erythema, necrosis. there was no drainage. Palpation (GI): Soft to palpation, nontender and not rigid Assessment & Plan Assessment & Plan (1) S/P repair of ventral hernia: Comment: Dr. Duncan 01/10/25 Code(s): Z98.890 - Other specified postprocedural states; Z87.19 - Personal history of other diseases of the digestive system Category: Medical Plan 64 year old male s/p ventral hernia repair with Dr. Duncan on 01/10/25 returning to the office for routine follow up. He is doing well overall, however he is concerned because there is another bulge at the incision site he is unsure if this has been there since the procedure. he denies pain, or drainage from the area. On exam there is a protruding area of induration that is about 3 finger breaths wide. There is a 1.5 cm area of fluctuance that likely represents a seroma at the superior aspect of the incision site. The incision site is intact, there is no evidence of drainage at this time. There was no compromise of the overlaying skin. The tissue appears to remain well perfused. I reassured him that this is cardroom hand resolve on its own and does not need to be drained at this time. Given that he is not experiencing pain, or skin changes, i recommended that he should manage this with warm compress a few times per day. he is to contact us if this begins to drain, he experinces pain, there are changes to the skin. He is to continue with activity restrictions, no heavy lifting greater than 15-20 pounds until at least 02/21/25. He is to return in 2 weeks for follow up. Can call to be seen earleir with any concerns or questions. Coding Level of Care Code Est Pt Level 3 (75774) Diagnoses S/P repair of ventral hernia Z98.890; Z87.19
[2025-01-24 14:14] VITALS: BP 149/77; PULSE 100
--- OUTSIDE RECORDS SUMMARY | 2025-01-24 17:51 | XMS_ITS | Clinical Summary ---
Author Organization [facility] Address [address] [place] [address] Care Team Providers Care Code Inspector Name Role Phone Unavailable Primary Care Provider [...] this topic Pop Monterroso Personal/Family Self 1960 [address] [place] [address]
== END 2025-01-24 14:23 | disposition home or self-care (01) ==
LOC: HO.HGS 14:05
PROVIDERS: PCP Internal Medicine
DX: Z98.890 Other specified postprocedural states (principal); Z87.19 Personal history of other diseases of the digestive system
CPT/HCPCS: 99213

== ENCOUNTER → 2025-01-24 14:04 | Outpatient (BNVA) | payer MEDICARE, SELFPAY | PROVIDERS: PCP Internal Medicine | DX: Z48.815 Encounter for surgical aftercare following surgery on the digestive system (principal); Z87.19 Personal history of other diseases of the digestive system; Z98.890 Other specified postprocedural states | CPT/HCPCS: 99212 ==

== ENCOUNTER 2025-02-07 08:58 | Outpatient (REF) | payer MEDICARE, SELFPAY ==
--- NOTE | ~2025-02-07 | XR_ITS ---
EXAMINATION: XR PELVIS CLINICAL INFORMATION: M25.559 - Pain in unspecified hip COMPARISON: Radiographs of the right hip on December 04, 2024 TECHNIQUE: AP view of the pelvis. FINDINGS: Right hip: No acute fracture or dislocation. Essentially unchanged severe degenerative changes with joint space narrowing, subchondral sclerotic and cystic changes and marginal osteophytes. Remainder pelvis: No displaced acute fracture or dislocation. Sacroiliac joints and symphysis pubis are intact. Left hip joint space is preserved. XR/XR pelvis 1-2V IMPRESSION: Severe degenerative changes of the right hip joint, unchanged. Electronically signed by: Riddhi Rios MD 02/07/2025 10:28 AM EDT
--- OUTSIDE RECORDS SUMMARY | 2025-02-08 09:59 | XMS_ITS | Clinical Summary ---
Author Organization [facility] Address [address] [place] [address] Care Team Providers Care [place] Name Role Phone Unavailable Primary Care Provider [...] this topic Pop Monterroso Personal/Family Self 1960 [address] [place] [address]
== END 2025-02-07 08:59 | disposition home or self-care (01) ==
LOC: HO.HOSX 08:58
PROVIDERS: Visit Provider Physician Assistant
DX: M16.11 Unilateral primary osteoarthritis, right hip (principal); M70.61 Trochanteric bursitis, right hip; Z48.815 Encounter for surgical aftercare following surgery on the digestive system; Z98.890 Other specified postprocedural states; Z87.19 Personal history of other diseases of the digestive system; Z79.899 Other long term (current) drug therapy; Z79.82 Long term (current) use of aspirin
CPT/HCPCS: 20610; 72170; 99212; J0665; J1100; J2003

== ENCOUNTER 2025-02-07 10:14 | Outpatient (AMB) | payer MEDICARE, SELFPAY ==
--- NOTE | 2025-02-07 10:20 | MHC.OFFVIS ---
Vital Signs 02/07/25 10:28 Height 5 ft 11.5 in Weight 204 lb BMI 28.1 Intake Visit Reasons: HEAD OF DRAMA-Pain in right hip Intake Note: Pop is a 64 year old male who presents today as a new patient for an evaluation of right hip pain. Patient seen by PCP, who ordered x-rays and he was referred to orthopedics for chronic right hip pain. Today patient reports pain located at the lateral side of hip. His pain has been present for over a year that has been getting worse. No previous treatment. No numbness or tingling. Denies injury. Allergies No Known Allergies Allergy (Verified 02/07/25 11:30) Medication List - Last Reconciled 02/07/25 by Kera Wilson PA-C acetaminophen (Acetaminophen Extra Strength) 1,000 mg PO Q6H PRN aspirin (Adult Low Dose Aspirin) 81 mg PO DAILY atorvastatin 20 mg PO BEDTIME diltiazem HCl CD 360 mg PO BEDTIME HPI HPI HEAD OF DRAMA-Pain in right hip: Details: 64 yo male presents to the office today for rt hip pain x 1 year . He has lateral side hip pain and denies groin pain but it has significantly limited motion of the hip. He has diff with stairs. He states he has diff getting in and out of a car. He states he is unable to sleep on his right side at night due to the pain. [facility] Medical History History of amputation of finger Right hip pain Osteoarthritis Chronic right hip pain Vitamin D deficiency Dyslipidemia Persistent atrial fibrillation Surgical History History of ventral hernia repair (01/10/25) History of ankle surgery (~1979) Hx of colonoscopy (~2014) Family History Father A-fib Colon cancer Mother A-fib Sister A-fib Paternal Grandfather Diabetes mellitus Myocardial infarction Social History Household Members: Spouse Housing: House Are you a primary manager critical care unit to a significant other at home: No Do you presently have visiting nurse or other home services: No Comment: counts correct Patient Tobacco Use Status: Former Tobacco user Tobacco use type: Cigarette e-Cigarette/Vaping Use: Never Used service: No Current occupational status: retired Cognitive needs: No Hearing needs: No Vision needs: Yes Review of Systems Const All systems reviewed & are unremarkable except as noted in HPI and below Physical Exam Vital Signs: BMI result Body Mass Index 28.1 Const General: cooperative and no acute distress Orientation/consciousness: patient oriented x3 Resp Effort & Inspection: normal respiratory effort and able to speak in complete sentences Cardio Peripheral pulses: Peripheral pulses 2+ throughout Neuro General: patient oriented x3 Extrem Other: Right hip limited motion on exam with significant discomfort. He does have tenderness to palpation over the greater tuberosity. Walks with antalgic gait. Office Procedures AMB Joint Injection/Aspiration Joint Injection/Aspiration Details: right trochanteric bursa Prep: site was prepped using aseptic technique, ethochloride spray was applied and injection warnings given Injected: 40 mg of, with 3 mL of, 1% plain lidocaine, 0.25% bupivacaine and decadron Procedure: The patient tolerated the procedure well and there was some relief with the local anesthesia Coding 61960 - Glenohumeral/Tronchanteric Bursa/Intraarticular Procedure code (CPT) selection complete Results Reviewed Results Reviewed: X-rays of the right hip obtained in the office today and reviewed by me show severe osteoarthritis on the right hip Assessment & Plan Assessment & Plan (1) Osteoarthritis of right hip: Code(s): M16.11 - Unilateral primary osteoarthritis, right hip Category: Medical (2) Trochanteric bursitis, right hip: Code(s): M70.61 - Trochanteric bursitis, right hip Category: Medical Plan We discussed options today which includes conservative versus surgical intervention. I did explain to the patient with the extent of his osteoarthritis a total hip arthroplasty would be the definitive treatment. 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 In the meantime he would like something to help with the pain. Since his pain is along the lateral aspect consistent with trochanteric bursitis I explained this is likely a symptom of a bigger problem which is his arthritis. I did offer him an injection of the right bursa today which she did accept and tolerated well. I also explained working on glute strengthening exercises can help with the bursitis symptoms and also help with conditioning for a more successful surgery. The patient expressed understanding. I will have him see Dr. Diaz in 8 weeks for a follow-up to discuss further if he has a candidate for total hip arthroplasty. Orders: Orders XR pelvis 1-2V Today M25.559 - Pain in unspecified hip Coding Level of Care Code New Pt Level 3 (55662) Complex EM visit Add On G2211 Diagnoses Osteoarthritis of right hip M16.11 Trochanteric bursitis, right hip M70.61 CPT Codes Coding - Joint 7: 41263 - Glenohumeral/Tronchanteric Bursa/Intraarticular ([id number])
[2025-02-07 10:28] VITALS: BMI 28.1
== END 2025-02-07 11:26 | disposition home or self-care (01) ==
LOC: HO.HOS 10:15
PROVIDERS: PCP Internal Medicine; Visit Provider Physician Assistant
DX: M16.11 Unilateral primary osteoarthritis, right hip (principal); M70.61 Trochanteric bursitis, right hip
CPT/HCPCS: 20610; 99213

== ENCOUNTER → 2025-02-07 10:16 | Outpatient (BNV) | payer MEDICARE, SELFPAY | PROVIDERS: Visit Provider Radiology Body Imaging | DX: M16.11 Unilateral primary osteoarthritis, right hip (principal) | CPT/HCPCS: 72170 ==

== ENCOUNTER 2025-02-07 11:27 | Outpatient (AMB) | payer MEDICARE, SELFPAY ==
--- NOTE | 2025-02-07 11:29 | A.OFFVIS_ITS ---
Vital Signs 02/07/25 11:33 Height 5 ft 11.5 in Weight 202 lb 13.204 oz BMI 27.9 Respiration 16 Intake Visit Reasons: 2wk S/P ventral hernia w/mesh Intake Note: Patient is seen in office for 2 weeks follow up visit, post ventral hernia repair. Pt c/o: per pt no concerns, lump in starting to go down Support Team Assoc Required: No Accompanied by: Self / Same As Patient Allergies No Known Allergies Allergy (Verified 02/07/25 11:30) HPI HPI 2wk S/P ventral hernia w/mesh: Details: Doing well. States he has been doing warm compresses at home which has reduce the size of the lump that he noticed that last visit. Denies pain in the abdomen. Denies fevers chills. Appetite and bowel function at baseline. He has no concerns. Continues to avoid heavy lifting. [facility] Medical History History of amputation of finger Right hip pain Osteoarthritis Chronic right hip pain Vitamin D deficiency Dyslipidemia Persistent atrial fibrillation Surgical History History of ventral hernia repair (01/10/25) History of ankle surgery (~1979) Hx of colonoscopy (~2014) Family History Father A-fib Colon cancer Mother A-fib Sister A-fib Paternal Grandfather Diabetes mellitus Myocardial infarction Social History Household Members: Spouse Housing: House Are you a primary child care supervisor to a significant other at home: No Do you presently have visiting nurse or other home services: No Comment: counts correct Patient Tobacco Use Status: Former Tobacco user Tobacco use type: Cigarette e-Cigarette/Vaping Use: Never Used service: No Current occupational status: retired Cognitive needs: No Hearing needs: No Vision needs: Yes Physical Exam Vital Signs: Last Vital Signs Resp 16 02/07/25 11:33 BMI result Body Mass Index 27.9 Const General: comfortable and no acute distress Orientation/consciousness: patient oriented x3 Resp Effort & Inspection: normal respiratory effort and able to speak in complete sentences GI Other: Incision site well healed, seroma resolved. Some induration deep to the incision, no fluctuance, nontender. No recurrence on Valsalva Neuro General: patient oriented x3 Assessment & Plan Assessment & Plan (1) S/P repair of ventral hernia: Comment: Dr. Duncan 01/10/25 Code(s): Z98.890 - Other specified postprocedural states; Z87.19 - Personal history of other diseases of the digestive system Category: Surgical Plan 64 year old male s/p ventral hernia repair with Dr. Duncan on 01/10/25 returning to the office for routine follow up. He is doing well overall, the seroma from last visit has resolved. he denies pain, or drainage from the area. On exam the seroma appears resolved. There is no longer an area of fluctuance that was appreciated last visit. The incision site is intact, there is no evidence of drainage at this time. There is some deep induration, recommended continuing warm compresses 2 to 3 times a day. Otherwise on exam the incision site is intact, no cellulitic changes, no concern for infection at this time. There was no evidence of recurrence on Valsalva. He is to continue with activity restrictions, no heavy lifting greater than 15-20 pounds until at least 02/21/25. No longer requiring follow up, can return as needed with any questions or concerns in the future. Coding Level of Care Code Est Pt Level 3 (28838) Diagnoses S/P repair of ventral hernia Z98.890; Z87.19
[2025-02-07 11:33] VITALS: RESP 16; BMI 27.9
--- OUTSIDE RECORDS SUMMARY | 2025-02-07 14:43 | XMS_ITS | Clinical Summary ---
Author Organization [facility] Address [address] [place] [address] Care Team Providers Care Substance Abuse Services Director Name Role Phone Unavailable Primary Care Provider [...] this topic Pop Monterroso Personal/Family Self 1960 [address] [place] [address]
== END 2025-02-07 11:51 | disposition home or self-care (01) ==
LOC: HO.HGS 11:28
PROVIDERS: PCP Internal Medicine
DX: Z98.890 Other specified postprocedural states (principal); Z87.19 Personal history of other diseases of the digestive system
CPT/HCPCS: 99213

== ENCOUNTER 2025-04-02 09:56 | Outpatient (AMB) | payer MEDICARE, SELFPAY ==
--- NOTE | 2025-04-02 10:08 | A.OFFVIS_ITS ---
Intake Visit Reasons: OV- Rt hip OA discuss ASHLEY Intake Note: Pop is a 64 year old male who presents today for a follow up of his Right Hip OA. He was last seen with Kera Wilson who discussed ASHLEY with him. The right greater trochanter bursa was injected 02/07/25. This injection was only mildly helpful. He takes tylenol for the pain. Hx: Afib - Aspirin - Dr. Mary Jo Mo Allergies No Known Allergies Allergy (Verified 02/07/25 11:30) HPI HPI OV- Rt hip OA discuss ASHLEY: Details: Pop is a 64 year old male who presents today for a follow up of his Right Hip OA. He was last seen with Kera Wilson who discussed ASHLEY with him. The right greater trochanter bursa was injected 02/07/25. This injection was only mildly helpful. He takes tylenol for the pain. Hx: Afib - Aspirin - Dr. Mary Jo Mo HPI Comments Details: Interval History The patient is a 64-year-old male presenting with right hip osteoarthritis for discussion of total hip arthroplasty. The patient reports that his right hip has been problematic for a couple of years, causing him to limp, which he believes contributes to knee pain. He notes that the pain is not localized to the hip itself but is exacerbated by limping. The patient recently underwent hernia repair on January 10, which he reports went well without major complications. He has a history of atrial fibrillation for which he takes diltiazem and a statin, and he uses baby aspirin instead of blood thinners. The patient is retired from [employer]. 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 When he does engage in activity such as walking has sharp right-sided groin pain. [facility] Medical History History of amputation of finger Right hip pain Osteoarthritis Chronic right hip pain Vitamin D deficiency Dyslipidemia Persistent atrial fibrillation Surgical History History of ventral hernia repair (01/10/25) History of ankle surgery (~1979) Hx of colonoscopy (~2014) Family History Father A-fib Colon cancer Mother A-fib Sister A-fib Paternal Grandfather Diabetes mellitus Myocardial infarction Social History Household Members: Spouse Housing: House Are you a primary healthcare receptionist to a significant other at home: No Do you presently have visiting nurse or other home services: No Comment: counts correct Patient Tobacco Use Status: Former Tobacco user Tobacco use type: Cigarette e-Cigarette/Vaping Use: Never Used service: No Current occupational status: retired Cognitive needs: No Hearing needs: No Vision needs: Yes Physical Exam Exam Exam: Physical Exam - Extremities: Minimal internal rotation with pain in the right hip. Positive impingement and positive Stinchfield test on the right hip. - Neurologic: 2+ dorsalis pedis pulse. Results Reviewed Results Reviewed: I personally reviewed relevant radiographs. - X-ray shows severe osteoarthritis of the right hip. Assessment & Plan Assessment & Plan (1) Osteoarthritis of right hip: Code(s): M16.11 - Unilateral primary osteoarthritis, right hip Category: Medical Plan Plan 1. Right Hip Osteoarthritis The plan is to proceed with total hip arthroplasty for the right hip osteoarthritis, with surgery tentatively scheduled for June or July to accommodate the patient's preference and schedule. The patient will stay overnight post-surgery to facilitate physical therapy and ensure optimal recovery. Pre-operative clearance will be coordinated, and the patient will be introduced to the nurse navigator to begin the pre-surgical process. 2. Atrial Fibrillation Continue current management with diltiazem and baby aspirin. 3. Post-Hernia Repair No further intervention required as the patient reports no complications post- repair. Discussion Notes The patient and I discussed the nature and benefits of total hip arthroplasty, including the expected recovery timeline and the shift from arthritis pain to surgical pain, which is generally more tolerable. The risks associated with the procedure, such as infection and blood clots, were explained, and the patient expressed understanding and willingness to proceed with surgery in June or July. The patient was informed about the overnight hospital stay post-surgery to facilitate physical therapy, which he agreed would be beneficial. The patient expressed concerns about recovery time due to his part-time bartending job, but was reassured that he could likely return to work within a month, depending on his recovery progress. Coding Level of Care Code Est Pt Level 4 (18453) Diagnoses Osteoarthritis of right hip M16.11
--- OUTSIDE RECORDS SUMMARY | 2025-04-02 11:49 | XMS_ITS | Clinical Summary ---
Author Organization [facility] Prior to 09/09/24 Address [address] [place] [address] Care Team Providers Care Principal Mechanical Engineer Name Role Phone Unavailable Primary Care Provider [...] this topic Pop Monterroso Personal/Family Self 1960 [address] [facility] [place] [address]
== END 2025-04-02 13:03 | disposition home or self-care (01) ==
LOC: HO.HOS 09:57
PROVIDERS: Visit Provider Orthopaedic Surgery
DX: M16.11 Unilateral primary osteoarthritis, right hip (principal)
CPT/HCPCS: 99214

== ENCOUNTER → 2025-04-02 09:56 | Outpatient (BNVA) | payer MEDICARE, SELFPAY | PROVIDERS: Visit Provider Orthopaedic Surgery | DX: M16.11 Unilateral primary osteoarthritis, right hip (principal) | CPT/HCPCS: 99212 ==